=== PATIENT | male | born 1960 | race Caucasian/White ===

== ENCOUNTER 2019-06-30 00:10 | Day surgery (SDC) | payer OTHER, SELFPAY ==
[2019-06-28 13:39] VITALS: BMI 32.8
[2019-06-30] MEDS: LACTATED RINGERS 1,000 ML 150 ML IV CONT (12:16)
--- NOTE | 2019-06-30 15:10 | PM.HPGS ---
History of Present Illness History of Present Illness Consent: Risks, benefits, and alternatives have been discussed and questions answered. Patient agrees to proceed with procedure. Chief complaint: Neoplasm screening Narrative: Rosendo Cruz is a 58 year old male here for first colonoscopy Review of Systems Constitutional: Constitutional: Denies headache(s) and Denies weakness Eyes: Eyes: Denies blurry vision ENT: Reports Normal hearing present, Denies headache(s) and Denies neck pain Cardiovascular: Cardiovascular: Denies chest pain and Denies dyspnea Respiratory: Respiratory: Denies dyspnea Gastrointestinal: Gastrointestinal: Reports no additional gastrointestinal complaints Genitourinary: Genitourinary: Denies dysuria Musculoskeletal: Musculoskeletal: Denies neck pain Integumentary/Breasts: Skin/Breast: Denies dry skin Neurologic: Reports Normal hearing present, Denies headache(s) and Denies weakness Psychiatric: Psychiatric: Denies anxiety Endocrine: Endocrine: Denies change in body appearance Hematologic/Lymphatic: Hematologic/Lymphatic: Denies easy bleeding Allergic/Immunologic: Allergic/Immunologic: Denies urticaria PMFSH Past Medical History Medical History (Updated 06/30/19 @ 15:11 by Darius Miner MD) Colon cancer screening Meds Home Medications and Allergies Home Medications Medication Instructions Recorded Confirmed Type lisinopril-hydrochlorothiazide 1 tablet PO DAILY 06/28/19 06/30/19 History Allergies Allergy/AdvReac Type Severity Reaction Status Date / Time Penicillins Allergy Mild Rash Verified 06/30/19 11:34 Exam Const: General: comfortable and no acute distress HENMT: General nose exam: Normal nares present Eyes: General: appearance normal, both eyes and all related structures Neck: Neck: no JVD Resp: Auscultation: clear to auscultation bilaterally Cardio: Rate: regular rate Rhythm: regular rhythm GI: Inspection: non-distended GI Palp: Yes Soft to palpation Skin: General skin exam: normal color Neuro: General: gait normal Speech: normal speech Extrem: General: normal to inspection Psych: Mental Status: mental status grossly normal Assessment and Plan Assessment and plan (1) Colon cancer screening: Code(s): Z12.11 - Encounter for screening for malignant neoplasm of colon Status: Acute Assessment and Plan: will proceed with colonoscopy
[2019-06-30 15:15] VITALS: BP 116/80; PULSE 76; RESP 15; O2SAT 98
[2019-06-30 15:25] VITALS: BP 115/81; PULSE 71; RESP 12; O2SAT 99
--- NOTE | 2019-06-30 15:25 | P.PNAN_ITS ---
Anes - Initial Pre Proc Eval Procedure: Operation Date: 06/30/19 13:00 Proposed Procedures p Screening Colonoscopy - Darius Miner MD Date/Time: 06/30/19 15:25 Surgeon: Darius Miner MD Pre Op Diagnosis: Neoplasm screening Patient Data Age: 58 Gender: M Height: 5 ft 11 in Weight: 106.3 kg Allergies Allergy/AdvReac Type Severity Reaction Status Date / Time Penicillins Allergy Mild Rash Verified 06/30/19 11:34 Home Medications Medication Instructions Recorded Confirmed Type lisinopril-hydrochlorothiazide 1 tablet PO DAILY 06/28/19 06/30/19 History Patient hx anesthesia problems: none Family hx anesthesia problems: none [facility] Past Medical History Medical History (Updated 06/30/19 @ 15:25 by Tomy James MD) Colon cancer screening Obesity CIERRA (obstructive sleep apnea) PVD (peripheral vascular disease) Surgical History Surgical History (Updated 06/30/19 @ 15:26 by Tomy James MD) S/P insertion of iliac artery stent Anes - Eval Final PreProcedure Day of Procedure 06/30/19 15:25 Patient weight: obese Heart: regular rate and rhythm Lungs: clear to auscultation Airway: Mallampati scale class II Neurological: alert and oriented Last oral intake: >/= 8 hours ASA classification: III Emergent: no Anesthetic plan: proceed Informed Consent: The patient's anesthetic plan and its attendant risks and benefits were discussed with the patient/family/POA. Questions were solicited and answers provided to the satisfaction of the patient/family/POA.
== END 2019-06-30 16:00 | disposition home or self-care (01) ==
PROVIDERS: PCP Family Medicine Sports Medicine; Visit Provider Internal Medicine Gastroenterology
PROC: 0DJD8ZZ Inspection of Lower Intestinal Tract, Via Natural or Artificial Opening Endoscopic (ICD-10-PCS; CPT 45378; principal; 2019-06-30 13:00)
DX: Z12.11 Encounter for screening for malignant neoplasm of colon (principal); D12.3 Benign neoplasm of transverse colon; K63.5 Polyp of colon; K57.30 Diverticulosis of large intestine without perforation or abscess without bleeding
CPT/HCPCS: 45380; 45385; 88305; J2704; J7120

== ENCOUNTER 2021-08-12 09:55 | Emergency (ER) | payer BC, SELFPAY ==
--- NOTE | ~2021-08-12 | XR_ITS ---
EXAMINATION: XR chest 1V portable INDICATION: Tachycardia and shortness of breath TECHNIQUE: Portable AP chest at 1032 hours COMPARISON: None available FINDINGS: There are patchy opacities of the mid and lower lung zones. No pleural effusion or pneumoth orax is identified. The cardiomediastinal silhouette is normal. IMPRESSION: 1. Patchy opacities of the mid and lower lung zones, consistent with atelectasis versus pneumonia. Reviewed, dictated and finalized at location A. IMPRESSION: 1. Patchy opacities of the mid and lower lung zones, consistent with atelectasi s versus pneumonia.
[2021-08-12 09:57] VITALS: BP 188/98; PULSE 115; RESP 17; TEMP 36.6; O2SAT 98
--- NOTE | 2021-08-12 10:04 | ECG_ITS ---
Measurements Intervals [place] Rate: 106 P: 61 [place]: 193 QRS: 77 QRSD: 97 T: 45 QT: 317 QTc: 422 Interpretive Statements SINUS TACHYCARDIA WITH OCCASIONAL PREMATURE VENTRICULAR CONTRACTION NONSPECIFIC T-WAVE ABNORMALITY BORDERLINE ECG NO PREVIOUS ECG AVAILABLE FOR COMPARISON Electronically Signed On 08-12-2021 14:35:21 CDT by Jean-Pierre Xiong M.D.
--- NOTE | 2021-08-12 10:05 | ED.ARRPALP ---
HPI - Arrhythmia/Palpitations General Chief Complaint: Arrhythmia/Palpitations Stated Complaint: palp Time Seen by Provider: 08/12/21 09:56 Source: RN notes reviewed History of Present Illness HPI narrative: Patient presents emergency department from home for palpitations. Patient states symptoms began yesterday. He states at times will feel his heart is racing and then will feel like he is skipping a beat at times. He states that with this he began to feel short of breath this morning. He denies any previous cardiac history or any history of arrhythmias. He denies any fevers or chills, chest pain shortness of breath abdominal pain nausea vomiting or any other symptoms. Denies any new medications or any increased Phonation Related Data Home Medications Medication Instructions Recorded Confirmed lisinopril 10 1 tablet PO DAILY 06/28/19 06/30/19 mg-hydrochlorothiazide 12.5 mg tablet Allergies Allergy/AdvReac Type Severity Reaction Status Date / Time Penicillins Allergy Mild Rash Verified 08/12/21 10:02 Review of Systems Review of Systems: Gen.: Denies fevers or chills ENT: Denies congestion Respiratory: Ports shortness of breath CV: See HPI GI: Denies abdominal pain nausea, emesis or diarrhea Musculoskeletal: Denies back pain or muscle pain Neuro: Denies numbness, tingling, weakness or focal weakness Skin: Denies rash Except as documented, all other systems reviewed and negative [facility] Past Medical History Medical History Colon cancer screening Obesity CIERRA (obstructive sleep apnea) PVD (peripheral vascular disease) Surgical History Surgical History (Updated 06/30/19 @ 15:26 by Tomy James MD) S/P insertion of iliac artery stent Social History Social History (Updated 08/12/21 @ 10:08 by Bashir Tello DO) Smoking status: Never smoker Exam Narrative: APPEARANCE: No acute distress, nontoxic, resting in bed EYES: EOMI HEENT: Normocephalic, atraumatic, OMM RESPIRATORY: No respiratory distress Clear to auscultation bilaterally with no rhonchi wheezing or rales. CARDIOVASCULAR: Regular rate and rhythm without murmurs rubs or gallops. ABDOMINAL: Soft, nontender, nondistended, no rebound or guarding MUSCULOSKELETAl: Moves all extremities. No clubbing, cyanosis or edema. NEURO: Awake and alert. Following commands, speech normal, no focal deficits SKIN:: Warm, dry. No rashes lesions or abrasions PSYCHIATRIC: Normal affect/mood, Course Course Emergency Course: Patient is remained on pvc monitor throughout stay in ED no arrhythmias noted other than occasional PVC Discussed with patient chest x-ray patient has no fevers or chills no white count denies having any cough feel this favors atelectasis Discussed with patient results of workup and diagnosis. Discussed need for follow-up with primary care, proper use of medication, and reasons to return to the emergency department. Patient understands and agrees to current treatment plan Vital Signs Vital signs: Vital Signs Temperature 97.8 F 08/12/21 09:57 Pulse Rate 115 H 08/12/21 09:57 Respiratory Rate 17 08/12/21 09:57 Blood Pressure 188/98 H 08/12/21 09:57 Pulse Oximetry 98 08/12/21 09:57 Oxygen Delivery Room Air 08/12/21 09:57 Temperature 97.8 F 08/12/21 09:57 Pulse Rate 88 08/12/21 13:43 Respiratory Rate 19 08/12/21 13:43 Blood Pressure 104/73 08/12/21 13:43 Pulse Oximetry 97 08/12/21 13:43 Oxygen Delivery Room Air 08/12/21 09:57 MDM - Arrhythmia/Palpitations Lab Data Result diagrams: 08/12/21 10:07 08/12/21 10:07 Labs: Lab Results 08/12/21 08/12/21 08/12/21 Range/Units 10:07 10:07 10:07 WBC 5.8 (4.5-10.0) K/mm3 RBC 5.50 (4.6-6.20) M/mm3 Hgb 16.3 (14.0-18.0) g/dL Hct 47.3 (42.0-52.0) % MCV 86.0 (80-100) fl MCH 29.6 (26-34) pg MCHC 34.5 (32-36) g/dl RDW
[2021-08-12] MEDS: SODIUM CHLORIDE 0.9% IV 1,000 ML 999 ML IV CONT (10:16)
[2021-08-12 10:35] VITALS: BP 145/86; PULSE 90; RESP 17; O2SAT 99
[2021-08-12 10:37] LABS: Basophils Absolute Auto 0.1 K/mm3 (0.0-0.1); Basophils Percent Auto 1.4 % (0.2-1.2); Eosinophils Absolute Auto 0.1 K/mm3 (0-0.3); Eosinophils Percent Auto 1.5 % (0-4.4); Hematocrit 47.3 % (42.0-52.0); Hemoglobin 16.3 g/dL (14.0-18.0); Immature Granulocyte Absolute 0.02 K/mm3 (0.00-0.031); Immature Granulocyte Percent A 0.3 % (0-0.5); Lymphocytes Absolute Auto 1.93 K/mm3 (0.9-3.2); Lymphocytes Percent Auto 33.2 % (18.3-44.2); Mean Corpuscular HGB Conc 34.5 g/dl (32-36); Mean Corpuscular Hemoglobin 29.6 pg (26-34); Mean Platelet Volume 9.4 fl (7.4-10.4); Monocytes Absolute Auto 0.4 K/mm3 (0.1-0.6); Monocytes Percent Auto 7.4 % (2.6-8.5); Neutrophils Absolute Auto 3.3 K/mm3 (1.3-6.7); Neutrophils Percent Auto 56.2 % (45.5-73.1); Platelet Count Result 243 k/mm3 (150-375); Red Cell Distribution Width 13.1 % (11.5-14.5); White Blood Count 5.8 K/mm3 (4.5-10.0)
[2021-08-12 10:52] LABS: Alanine Aminotransferase 34 U/L (6-50); Albumin Level 4.8 g/dL (3.5-5.1); Alkaline Phosphatase 74 U/L (38-126); Anion Gap 7 mmol/L (8-16); Aspartate Amino Transferase 27 U/L (17-59); Bilirubin,Total 0.7 mg/dL (0.2-1.3); Blood Urea Nitrogen 17 mg/dL (9-20); Calcium 9.2 mg/dL (8.4-10.2); Carbon Dioxide 28 mmol/L (22-30); Chloride 99 mmol/L (98-107); Estimated CRCL calculation 99 ml/min; Estimated Glomerular Filt Rate > 60; Glucose 156 mg/dL (65-110); Lipase 82 U/L (23-300); Potassium 3.5 mmol/L (3.4-5.0); Sodium 134 mmol/L (137-145)
[2021-08-12 10:54] LABS: Prothrombin Time 12.9 Seconds (11.1-14.7)
[2021-08-12 10:55] LABS: Partial Thromboplastin Time 28.3 SECONDS (22.3-36.8)
[2021-08-12 10:57] LABS: D Dimer 0.43 ug/mL (<0.48)
[2021-08-12 11:04] LABS: Troponin I < 0.012 ng/mL (0.000-0.034)
[2021-08-12 11:31] VITALS: BP 129/82; PULSE 85; RESP 26; O2SAT 96
[2021-08-12 11:45] LABS: SARS-CoV-2 RNA PCR Negative
[2021-08-12 12:38] VITALS: BP 135/85; PULSE 80; RESP 18; O2SAT 97
[2021-08-12 13:32] LABS: Troponin I < 0.012 ng/mL (0.000-0.034)
[2021-08-12 13:43] VITALS: BP 104/73; PULSE 88; RESP 19; O2SAT 97
[2021-08-12 14:09] VITALS: BP 104/73; PULSE 73; RESP 15; O2SAT 98
== END 2021-08-12 14:14 | disposition home or self-care (01) ==
PROVIDERS: Emergency Provider Emergency Medicine; PCP Family Medicine Sports Medicine
DX: R00.2 Palpitations (principal); I49.3 Ventricular premature depolarization; Z20.822 Contact with and (suspected) exposure to COVID-19; I73.9 Peripheral vascular disease, unspecified; E66.9 Obesity, unspecified; Z68.34 Body mass index [BMI] 34.0-34.9, adult; G47.33 Obstructive sleep apnea (adult) (pediatric); R91.8 Other nonspecific abnormal finding of lung field
CPT/HCPCS: 36415; 71045; 80053; 83690; 83735; 84443; 84484; 85025; 85380; 85610; 85730; 93005; 96360; 99284; C9803; J7030; U0003; U0005

== ENCOUNTER 2024-05-08 18:22 | Emergency (ER) | payer BC, SELFPAY ==
[2024-05-08] VITALS (19 sets, daily range): BP systolic 148–168; BP diastolic 85–99; PULSE 82–105; RESP 15–30; TEMP 36.8; O2SAT 96–100
--- NOTE | ~2024-05-08 | XR_ITS ---
EXAMINATION: XR chest 2V Exam Date/Time: 05/08/2024 21:08 CDT HISTORY: CHEST PAIN, LEFT SIDED, OCCURS WHEN BREATHING IN Comparison: 08/12/2021. RESULT: Lines, tubes, and devices: None. Lungs and pleura: Streaky bibasilar scar/atelectasis. Left hemidiaphragm elevation. Minimal left pos terior costophrenic angle blunting. Cardiomediastinal silhouette: Stable. Other: No acute osseous or upper abdominal finding. IMPRESSION: Small left pleural effusion versus chronic pleural blunting. Reviewed, dictated and finalized at location K.
--- NOTE | ~2024-05-08 | CT_ITS ---
Clinical Indication: Chest pain, elevated d-dimer CT Scan of the Chest with Contrast: Technique: Contiguous sections were acquired throughout the chest after intravenous administration of 100 cc of Omnipaque 350. Dose reduction technique was used on this scan by utilizing automated expos ure control and iterative reconstruction technique. The dose-length product (DLP) was 721.00 mGy-cm. Findings: There is no evidence of any significant mediastinal, hilar or axillary lymphadenopathy. There is exte nsive pulmonary embolus, with subtle embolus involving the main pulmonary perfusion extending to the bilateral main pulmonary arteries with extension into segmental branches bilaterally. There is mild f lattening of the interventricular septum. There is no evidence of aortic dissection or aneurysm. There is no evidence of pleural or pericardial effusion. There is focal groundglass consolidation in the peripheral left upper lobe (axial image 59). There is additional area of groundglass consolidation at the lingula. 4 mm right lower lobe pulmonary nodule present (axial image 73).. Images through the upper abdomen reveal no abnormalities. Impression: Extensive pulmonary embolus, including saddle embolus, as detailed above. Mild flattening of the inte rventricular septum could reflect mild right heart strain. Areas of groundglass consolidation in the left upper lobe/lingula, suspicious for developing pulmonar y infarcts. 4 mm right lower lobe pulmonary nodule, likely benign. For a high-risk patient, consider one-year fol low-up exam. Reviewed, dictated and finalized at [facility]. Impression: Extensive pulmonary embolus, including saddle embolus, as detailed above. Mild flattening of the interventricular septum could reflect mild right heart strain . Areas of groundglass consolidation in the left upper lobe/lingula, suspicious f or developing pulmonary infarcts. 4 mm right lower lobe pulmonary nodule, likely benign. For a high-risk patient, consider one-year follow-up exam.
--- NOTE | ~2024-05-08 | CT_ITS ---
CT abdomen pelvis w con Ordering provider: Hazel Aiken MD History: 63 years Male with . generalized abdominal distension pain, RLQ prima . Comparison: None. Technique: CT abdomen and pelvis with IV and without oral contrast. Automated exposure control and it erative reconstruction technique were employed. The dose-length product was 1149.99 mGy-cm. 100 mL Om nipaque 350 was given IV. Findings: VISUALIZED LOWER CHEST: Atelectasis versus focal pneumonia in the lingula. Minimal atelectasis in the left lower lobe with trace of effusion. UPPER ABDOMINAL ORGANS: Liver: Normal. Gallbladder: Normal. Spleen: Normal. Stomach/duodenum: Normal. Pancreas: Normal. Adrenals: Normal. Kidneys: Tiny cysts in the left and right kidney upper pole. PELVIC ORGANS: The bladder is underfilled with thickened wall. Slightly enlarged prostate BOWEL AND MESENTERY: Colon: No evidence of diverticulitis. Slightly dilated transverse colon measuring 6.1 cm. Normal appe ndix. Small Bowel: Normal. No obstruction. Peritoneum/mesentery: No free air or free fluid. No mesenteric lymphadenopathy. RETROPERITONEUM: Mild atheromatous disease of the abdominal aorta. Stents are seen in the iliac vein s. No retroperitoneal lymphadenopathy. MUSCULOSKELETAL: Superficial soft tissues: Inguinal lymph nodes are noted with the largest on the left side measures 1 .8 cm. The superficial soft tissues are normal. Bones: Age appropriate degenerative changes of the spine. IMPRESSION: 1. No evidence of appendicitis, diverticulitis or intestinal obstruction. 2. Slightly dilated transverse colon measuring 6 cm. Follow-up advised. 3. Stents are seen in the iliac veins. Reviewed, dictated and finalized at location A.
--- NOTE | 2024-05-08 18:32 | ECG_ITS ---
Test Date: 2024-05-08 18:37:11 Measurements Intervals [place] Rate: 104 P: 44 [place]: 167 QRS: 52 QRSD: 94 T: 37 QT: 302 QTc: 399 Interpretive Statements SINUS TACHYCARDIA ABNORMAL RHYTHM ECG No previous ECG available for comparison Electronically Signed On 05-09-2024 15:12:45 CDT by Jeremias Morgan M.D.
--- NOTE | 2024-05-08 20:42 | ED_ITS ---
HPI - SOB/Dyspnea General Chief Complaint: Shortness of Breath/Dyspnea <Imani Dsouza PA-C - Last Filed: 05/10/24 17:33> Stated Complaint: pain with inspiration under left breast <CINTHIA Chauhan Last Filed: 05/10/24 17:33> Time Seen by Provider: 05/08/24 20:27 <Imani Dsouza PA-C - Last Filed: 05/10/24 17:33> Source: patient <Imani Dsouza PA-C - Last Filed: 05/10/24 17:33> Mode of arrival: ambulatory <CINTHIA Chauhan Last Filed: 05/10/24 17:33> Limitations: no limitations <Imani Dsouza PA-C - Last Filed: 05/10/24 17:33> History of Present Illness HPI Narrative: This is a 63 year old male that presents to the ER for pain in his left rib cage. Worse with deep breathing. Ongoing today. Has somewhat subsided since onset. Was seen at urgent care and sent to the ER for further evaluation. <Imani Dsouza PA-C - Last Filed: 05/10/24 17:33> Related Data Home Medications: Home Medications ?Medication ?Instructions ?Recorded ?Confirmed ?Last Taken ?Type lisinopril 10 1 tablet PO DAILY 06/28/19 06/30/19 06/29/19 History mg-hydrochlorothiazide 12.5 mg tablet <CINTHIA Chauhan Last Filed: 05/10/24 17:33> Allergies/Adverse Reactions: Allergies Allergy/AdvReac Type Severity Reaction Status Date / Time Penicillins Allergy Mild Rash Verified 05/08/24 20:42 <CINTHIA Chauhan Last Filed: 05/10/24 17:33> Review of Systems 2 Review of Systems: All systems reviewed & are unremarkable except as noted in HPI and below <Imani Dsouza PA-C - Last Filed: 05/10/24 17:33> PMFSH Past Medical History Medical History: Medical History Colon cancer screening Obesity CIERRA (obstructive sleep apnea) PVD (peripheral vascular disease) <Imani Dsouza PA-C - Last Filed: 05/10/24 17:33> Surgical History Surgical History: Surgical History (Updated 06/30/19 @ 15:26 by Tomy James MD) S/P insertion of iliac artery stent <CINTHIA Chauhan Last Filed: 05/10/24 17:33> Social History Social History: Social History (Updated 08/12/21 @ 10:08 by Bashir Tello, DO) Smoking status: Never smoker <CINTHIA Chauhan Last Filed: 05/10/24 17:33> Exam 2 Narrative: GENERAL: Well-appearing, well-nourished, and in no acute distress. HEAD: Normocephalic, atraumatic. EYES: EOMI. ENT: Nares clear, no rhinorrhea or epistaxis. Mucous membranes moist. Oropharynx without tonsillar hypertrophy exudate or other lesions. Bilateral TMs pearly espinoza non-bulging NECK: Supple. No adenopathy or masses. CHEST: Clear to auscultation. No respiratory distress. No wheezes rales or rhonchi HEART: Regular rate and rhythm. No murmur heard. Normal peripheral pulses. EXTREMITIES: Normal range of motion. No edema. SKIN: Warm, dry, no rash. NEURO: No focal deficits. Alert and oriented x3. PSYCH: Normal mood and affect <Imani Dsouza PA-C - Last Filed: 05/10/24 17:33> Course Course Emergency Course: patient updated on his workup and recommendation for transfer for higher level of care <Imani Dsouza PA-C - Last Filed: 05/10/24 17:33> patient updated on his workup and recommendation for transfer for higher level of care 1450 on 05/09/24: Discussed with Dr. Sheth with hospitalist service at [facility]. Discussed that patient has had no decline in his status with stable blood pressure, normal heart rate, no oxygen requirement. He reports that patient likely does not require transfer and would not be a candidate for any interventional procedure in that patient can likely be discharged on Xarelto and Eliquis. Discussed getting an echocardiogram to evaluate for heart strain given patient had no elevated troponin. He would like to be updated on echo results especially if there is persistent heart strain. 1907 on 05/09/24: Discussed care plan with the patient. Care transferred to Dr. Purcell. NPO at midnight. Hopeful for echo in the morning. If no heart strain likely can d/c home with xarelto. Would recommend contacting Dr. Cruz. 05/10/24: Patient signed out to me this morning. Patient complaining of abdominal pain and bloating and gas throughout the day. He was slightly distended on exam although no rigidity or guarding. Initial plan was to attempt oral medications and reassess. However, patient became flushed with a red face and diaphoresis on his head. He states the pain is generalized although more so in LLQ. Patient underwent CT abdomen pelvis. This showed some dilatation in the transverse abdomen but otherwise unremarkable. Patient noted the pain was improving to a degree that he was ready to trial eating as he was hungry. He new to proceed cautiously and so only took a few bites of jocelin steak, cookie, etc but did tolerate this without emesis. Echo performed as below. Based on being in the ED >48 hours, I did attempt to contact marketing content coordinator hospitalist Heather MORRIS who declined admission at approximately 1900 as she did not feel comfortable with the admission given the initial evidence of right heart strain. Shortly thereafter, learned that there was a bed available at [facility]. Transportation arranged. Just prior to EMS arrival, patient became nauseated and received 4 mg ondansetron. <Hazel Aiken MD - Last Filed: 05/10/24 20:00> patient updated on his workup and recommendation for transfer for higher level of care 1449 on 05/09/24: Discussed with Dr. Sheth with hospitalist service at [facility]. Discussed that patient has had no decline in his status with stable blood pressure, normal heart rate, no oxygen requirement. He reports that patient likely does not require transfer and would not be a candidate for any interventional procedure in that patient can likely be discharged on Xarelto and Eliquis. Discussed getting an echocardiogram to evaluate for heart strain given patient had no elevated troponin. He would like to be updated on echo results especially if there is persistent heart strain. 1907 on 05/09/24: Discussed care plan with the patient. Care transferred to Dr. Purcell. NPO at midnight. Hopeful for echo in the morning. If no heart strain likely can d/c home with xakwesito. Would recommend contacting Dr. Crzu. <Gerson Montague MD - Last Filed: 05/09/24 19:09> WOMEN'S STUDIES PROFESSOR/PA Physician Supervision PA notified me that this patient had a saddle PE not currently requiring oxygen but with evidence of right heart strain and possible pulmonary infarct. I am where they have been accepted to [facility] but are pending a bed. I was available for further consultation or history intervention will patient remained in the emergency department however did not personally evaluate this patient was otherwise not directly involved in their care during my shift < Hazel Aiken MD - Last Filed: 05/10/24 20:00> Consultations Consultation #1: Spoke with Dr. Zepeda, hospitalist, about patient and workup. Patient is accepted to [facility] <Imani Dsouza PA-C - Last Filed: 05/10/24 17:33> Date: 05/09/24 <Imani Dsouza PA-C - Last Filed: 05/10/24 17:33> Vital Signs Vital signs: Vital Signs Temperature 98.3 F 05/08/24 18:32 Pulse Rate 102 H 05/08/24 18:32 Respiratory Rate 18 05/08/24 18:32 Blood Pressure 168/88 H 05/08/24 18:32 Pulse Oximetry 99 05/08/24 18:32 Oxygen Delivery Room Air 05/08/24 18:32 Temperature 97.9 F 05/10/24 16:00 Pulse Rate 86 05/10/24 16:00 Respiratory Rate 18 05/10/24 16:00 Blood Pressure 149/88 H 05/10/24 16:00 Pulse Oximetry 95 05/10/24 16:00 Oxygen Delivery Room Air 05/10/24 14:01 <Imani Dsouza PA-C - Last Filed: 05/10/24 17:33> Vital Signs Temperature 98.3 F 05/08/24 18:32 Pulse Rate 102 H 05/08/24 18:32 Respiratory Rate 18 05/08/24 18:32 Blood Pressure 168/88 H 05/08/24 18:32 Pulse Oximetry 99 05/08/24 18:32 Oxygen Delivery Room Air 05/08/24 18:32 Temperature 97.9 F 05/10/24 16:00 Pulse Rate 86 05/10/24 16:00 Respiratory Rate 18 05/10/24 16:00 Blood Pressure 149/88 H 05/10/24 16:00 Pulse Oximetry 95 05/10/24 16:00 Oxygen Delivery Room Air 05/10/24 14:01 <Hazel Aiken MD - Last Filed: 05/10/24 20:00> Vital Signs Temperature 98.3 F 05/08/24 18:32 Pulse Rate 102 H 05/08/24 18:32 Respiratory Rate 18 05/08/24 18:32 Blood Pressure 168/88 H 05/08/24 18:32 Pulse Oximetry 99 05/08/24 18:32 Oxygen Delivery Room Air 05/08/24 18:32 Temperature 97.9 F 05/10/24 16:00 Pulse Rate 86 05/10/24 16:00 Respiratory Rate 18 05/10/24 16:00 Blood Pressure 149/88 H 05/10/24 16:00 Pulse Oximetry 95 05/10/24 16:00 Oxygen Delivery Room Air 05/10/24 14:01 <Gerson Montague MD - Last Filed: 05/09/24 19:09> MDM - SOB/Dyspnea MDM Narrative Medical decision making narrative: Patient presents the emergency department for left-sided pleuritic chest pain. Mildly tachycardic over this normalized without intervention. Oxygen saturation has remained normal on room air. CBC and metabolic panel without concerning findings. EKG without concerning changes and baseline troponin is negative. D-dimer elevated, CTA of the chest obtained. Shows extensive bilateral pulmonary emboli, including saddle embolus. Right heart strain. Possible pulmonary infarct. patient updated on his workup and recommendation for transfer for higher level of care. Spoke with Dr. Zepeda, hospitalist, about patient and workup. Patient is accepted to [facility] <Imani Dsouza PA-C - Last Filed: 05/10/24 17:33> Differential Diagnosis Differential diagnosis: Likely congestive heart failure, community acquired pneumonia and pulmonary embolism <Imani Dsouza PA-C - Last Filed: 05/10/24 17:33> Lab Data Attestation: I reviewed the patient's lab results. <Imani Dsouza PA-C - Last Filed: 05/10/24 17:33> Result diagrams: 05/09/24 06:11 05/08/24 20:37 <Imani Dsouza PA-C - Last Filed: 05/10/24 17:33> Labs: Lab Results 05/08/24 05/09/24 05/09/24 Range/Units 20:37 02:23 06:11 WBC 9.3 7.8 (4.5-10.0) K/mm3 RBC 5.07 4.80 (4.6-6.20) M/mm3 Hgb 15.1 14.3 (14.0-18.0) g/dL Hct 44.1 42.1 (42.0-52.0) % MCV 87.0 87.7 (80-100) fl MCH 29.8 29.8 (26-34) pg MCHC 34.2 34.0 (32-36) g/dl RDW 13.0 13.1 (11.5-14.5) % Plt Count 223 212 (150-375) k/mm3 MPV 8.9 8.7 (7.4-10.4) fl Immature Gran % (Auto) 0.5 0.4 (0-0.5) % Neut % (Auto) 70.4 60.5 (45.5-73.1) % Lymph % (Auto) 20.4 28.4 (18.3-44.2) % [place] % (Auto) 6.3 8.2 (2.6-8.5) % Eos % (Auto) 1.6 1.7 (0-4.4) % Baso % (Auto) 0.8 0.8 (0.2-1.2) % Lymph # (Auto) 1.89 2.21 (0.9-3.2) K/mm3 [place] # (Auto) 0.6 0.6 (0.1-0.6) K/mm3 Eos # (Auto) 0.2 0.1 (0-0.3) K/mm3 Baso # (Auto) 0.1 0.1 (0.0-0.1) K/mm3 Abs Immat Gran (auto) 0.05 H 0.03 (0.00-0.031) K/mm3 Absolute Neuts (auto) 6.5 4.7 (1.3-6.7) K/mm3 Absolute Nucleated RBC 0.000 0.000 (0.0-0.012) K/mm3 Nucleated RBC % 0.0 0.0 (0.0-0.2) % PT 14.3 14.7 (11.1-14.7) Seconds INR 1.1 1.1 APTT 27.5 49.0 H (22.3-36.8) Seconds D-Dimer 2.76 H (<0.48) ug/mL Sodium 136 L (137-145) mmol/L Potassium 3.9 (3.4-5.0) mmol/L Chloride 100 (98-107) mmol/L Carbon Dioxide 29 (22-30) mmol/L Anion Gap 7 (4-12) mmol/L BUN 14 (9-20) mg/dL Creatinine 1.00 (0.7-1.3) mg/dL Estim Creat Clear Calc 88 ml/min Estimated GFR > 60 (59 - ) Glucose 115 H (65-110) mg/dL Calcium 9.5 (8.4-10.2) mg/dL Total Bilirubin 0.7 (0.2-1.3) mg/dL AST 29 (17-59) U/L ALT 38 (6-50) U/L Alkaline Phosphatase 91 (38-126) U/L Troponin I < 0.012 < 0.012 (0.000-0.034) ng/mL Total Protein 8.0 (6.3-8.2) g/dL Albumin 4.5 (3.5-5.1) g/dL Lipase 74 (23-300) U/L Influenza A (RT-PCR) Negative (Negative) Influenza B (RT-PCR) Negative (Negative) RSV (RT-PCR) Negative (Negative) SARS-CoV-2 RNA (RT-PCR) Negative (Negative) 05/09/24 05/09/24 05/09/24 Range/Units 11:34 16:23 21:47 WBC (4.5-10.0) K/mm3 RBC (4.6-6.20) M/mm3 Hgb (14.0-18.0) g/dL Hct (42.0-52.0) % MCV (80-100) fl MCH (26-34) pg MCHC (32-36) g/dl RDW (11.5-14.5) % Plt Count (150-375) k/mm3 MPV (7.4-10.4) fl Immature Gran % (Auto) (0-0.5) % Neut % (Auto) (45.5-73.1) % Lymph % (Auto) (18.3-44.2) % [place] % (Auto) (2.6-8.5) % Eos % (Auto) (0-4.4) % Baso % (Auto) (0.2-1.2) % Lymph # (Auto) (0.9-3.2) K/mm3 [place] # (Auto) (0.1-0.6) K/mm3 Eos # (Auto) (0-0.3) K/mm3 Baso # (Auto) (0.0-0.1) K/mm3 Abs Immat Gran (auto) (0.00-0.031) K/mm3 Absolute Neuts (auto) (1.3-6.7) K/mm3 Absolute Nucleated RBC (0.0-0.012) K/mm3 Nucleated RBC % (0.0-0.2) % PT (11.1-14.7) Seconds INR APTT 84.1 H 50.7 H 104.4 H (22.3-36.8) Seconds D-Dimer (<0.48) ug/mL Sodium (137-145) mmol/L Potassium (3.4-5.0) mmol/L Chloride (98-107) mmol/L Carbon Dioxide (22-30) mmol/L Anion Gap (4-12) mmol/L BUN (9-20) mg/dL Creatinine (0.7-1.3) mg/dL Estim Creat Clear Calc ml/min Estimated GFR (59 - ) Glucose (65-110) mg/dL Calcium (8.4-10.2) mg/dL Total Bilirubin (0.2-1.3) mg/dL AST (17-59) U/L ALT (6-50) U/L Alkaline Phosphatase (38-126) U/L Troponin I (0.000-0.034) ng/mL Total Protein (6.3-8.2) g/dL Albumin (3.5-5.1) g/dL Lipase (23-300) U/L Influenza A (RT-PCR) (Negative) Influenza B (RT-PCR) (Negative) RSV (RT-PCR) (Negative) SARS-CoV-2 RNA (RT-PCR) (Negative) 05/10/24 05/10/24 Range/Units 03:37 09:51 WBC (4.5-10.0) K/mm3 RBC (4.6-6.20) M/mm3 Hgb (14.0-18.0) g/dL Hct (42.0-52.0) % MCV (80-100) fl MCH (26-34) pg MCHC (32-36) g/dl RDW (11.5-14.5) % Plt Count (150-375) k/mm3 MPV (7.4-10.4) fl Immature Gran % (Auto) (0-0.5) % Neut % (Auto) (45.5-73.1) % Lymph % (Auto) (18.3-44.2) % [place] % (Auto) (2.6-8.5) % Eos % (Auto) (0-4.4) % Baso % (Auto) (0.2-1.2) % Lymph # (Auto) (0.9-3.2) K/mm3 [place] # (Auto) (0.1-0.6) K/mm3 Eos # (Auto) (0-0.3) K/mm3 Baso # (Auto) (0.0-0.1) K/mm3 Abs Immat Gran (auto) (0.00-0.031) K/mm3 Absolute Neuts (auto) (1.3-6.7) K/mm3 Absolute Nucleated RBC (0.0-0.012) K/mm3 Nucleated RBC % (0.0-0.2) % PT 14.4 (11.1-14.7) Seconds INR 1.1 APTT 94.3 H 78.9 H (22.3-36.8) Seconds D-Dimer (<0.48) ug/mL Sodium (137-145) mmol/L Potassium (3.4-5.0) mmol/L Chloride (98-107) mmol/L Carbon Dioxide (22-30) mmol/L Anion Gap (4-12) mmol/L BUN (9-20) mg/dL Creatinine (0.7-1.3) mg/dL Estim Creat Clear Calc ml/min Estimated GFR (59 - ) Glucose (65-110) mg/dL Calcium (8.4-10.2) mg/dL Total Bilirubin (0.2-1.3) mg/dL AST (17-59) U/L ALT (6-50) U/L Alkaline Phosphatase (38-126) U/L Troponin I (0.000-0.034) ng/mL Total Protein (6.3-8.2) g/dL Albumin (3.5-5.1) g/dL Lipase (23-300) U/L Influenza A (RT-PCR) (Negative) Influenza B (RT-PCR) (Negative) RSV (RT-PCR) (Negative) SARS-CoV-2 RNA (RT-PCR) (Negative) <Imani Dsouza PA-C - Last Filed: 05/10/24 17:33> Lab Results 05/08/24 05/09/24 05/09/24 Range/Units 20:37 02:23 06:11 WBC 9.3 7.8 (4.5-10.0) K/mm3 RBC 5.07 4.80 (4.6-6.20) M/mm3 Hgb 15.1 14.3 (14.0-18.0) g/dL Hct 44.1 42.1 (42.0-52.0) % MCV 87.0 87.7 (80-100) fl MCH 29.8 29.8 (26-34) pg MCHC 34.2 34.0 (32-36) g/dl RDW 13.0 13.1 (11.5-14.5) % Plt Count 223 212 (150-375) k/mm3 MPV 8.9 8.7 (7.4-10.4) fl Immature Gran % (Auto) 0.5 0.4 (0-0.5) % Neut % (Auto) 70.4 60.5 (45.5-73.1) % Lymph % (Auto) 20.4 28.4 (18.3-44.2) % [place] % (Auto) 6.3 8.2 (2.6-8.5) % Eos % (Auto) 1.6 1.7 (0-4.4) % Baso % (Auto) 0.8 0.8 (0.2-1.2) % Lymph # (Auto) 1.89 2.21 (0.9-3.2) K/mm3 [place] # (Auto) 0.6 0.6 (0.1-0.6) K/mm3 Eos # (Auto) 0.2 0.1 (0-0.3) K/mm3 Baso # (Auto) 0.1 0.1 (0.0-0.1) K/mm3 Abs Immat Gran (auto) 0.05 H 0.03 (0.00-0.031) K/mm3 Absolute Neuts (auto) 6.5 4.7 (1.3-6.7) K/mm3 Absolute Nucleated RBC 0.000 0.000 (0.0-0.012) K/mm3 Nucleated RBC % 0.0 0.0 (0.0-0.2) % PT 14.3 14.7 (11.1-14.7) Seconds INR 1.1 1.1 APTT 27.5 49.0 H (22.3-36.8) Seconds D-Dimer 2.76 H (<0.48) ug/mL Sodium 136 L (137-145) mmol/L Potassium 3.9 (3.4-5.0) mmol/L Chloride 100 (98-107) mmol/L Carbon Dioxide 29 (22-30) mmol/L Anion Gap 7 (4-12) mmol/L BUN 14 (9-20) mg/dL Creatinine 1.00 (0.7-1.3) mg/dL Estim Creat Clear Calc 88 ml/min Estimated GFR > 60 (59 - ) Glucose 115 H (65-110) mg/dL Calcium 9.5 (8.4-10.2) mg/dL Total Bilirubin 0.7 (0.2-1.3) mg/dL AST 29 (17-59) U/L ALT 38 (6-50) U/L Alkaline Phosphatase 91 (38-126) U/L Troponin I < 0.012 < 0.012 (0.000-0.034) ng/mL Total Protein 8.0 (6.3-8.2) g/dL Albumin 4.5 (3.5-5.1) g/dL Lipase 74 (23-300) U/L Influenza A (RT-PCR) Negative (Negative) Influenza B (RT-PCR) Negative (Negative) RSV (RT-PCR) Negative (Negative) SARS-CoV-2 RNA (RT-PCR) Negative (Negative) 05/09/24 05/09/24 05/09/24 Range/Units 11:34 16:23 21:47 WBC (4.5-10.0) K/mm3 RBC (4.6-6.20) M/mm3 Hgb (14.0-18.0) g/dL Hct (42.0-52.0) % MCV (80-100) fl MCH (26-34) pg MCHC (32-36) g/dl RDW (11.5-14.5) % Plt Count (150-375) k/mm3 MPV (7.4-10.4) fl Immature Gran % (Auto) (0-0.5) % Neut % (Auto) (45.5-73.1) % Lymph % (Auto) (18.3-44.2) % [place] % (Auto) (2.6-8.5) % Eos % (Auto) (0-4.4) % Baso % (Auto) (0.2-1.2) % Lymph # (Auto) (0.9-3.2) K/mm3 [place] # (Auto) (0.1-0.6) K/mm3 Eos # (Auto) (0-0.3) K/mm3 Baso # (Auto) (0.0-0.1) K/mm3 Abs Immat Gran (auto) (0.00-0.031) K/mm3 Absolute Neuts (auto) (1.3-6.7) K/mm3 Absolute Nucleated RBC (0.0-0.012) K/mm3 Nucleated RBC % (0.0-0.2) % PT (11.1-14.7) Seconds INR APTT 84.1 H 50.7 H 104.4 H (22.3-36.8) Seconds D-Dimer (<0.48) ug/mL Sodium (137-145) mmol/L Potassium (3.4-5.0) mmol/L Chloride (98-107) mmol/L Carbon Dioxide (22-30) mmol/L Anion Gap (4-12) mmol/L BUN (9-20) mg/dL Creatinine (0.7-1.3) mg/dL Estim Creat Clear Calc ml/min Estimated GFR (59 - ) Glucose (65-110) mg/dL Calcium (8.4-10.2) mg/dL Total Bilirubin (0.2-1.3) mg/dL AST (17-59) U/L ALT (6-50) U/L Alkaline Phosphatase (38-126) U/L Troponin I (0.000-0.034) ng/mL Total Protein (6.3-8.2) g/dL Albumin (3.5-5.1) g/dL Lipase (23-300) U/L Influenza A (RT-PCR) (Negative) Influenza B (RT-PCR) (Negative) RSV (RT-PCR) (Negative) SARS-CoV-2 RNA (RT-PCR) (Negative) 05/10/24 05/10/24 Range/Units 03:37 09:51 WBC (4.5-10.0) K/mm3 RBC (4.6-6.20) M/mm3 Hgb (14.0-18.0) g/dL Hct (42.0-52.0) % MCV (80-100) fl MCH (26-34) pg MCHC (32-36) g/dl RDW (11.5-14.5) % Plt Count (150-375) k/mm3 MPV (7.4-10.4) fl Immature Gran % (Auto) (0-0.5) % Neut % (Auto) (45.5-73.1) % Lymph % (Auto) (18.3-44.2) % [place] % (Auto) (2.6-8.5) % Eos % (Auto) (0-4.4) % Baso % (Auto) (0.2-1.2) % Lymph # (Auto) (0.9-3.2) K/mm3 [place] # (Auto) (0.1-0.6) K/mm3 Eos # (Auto) (0-0.3) K/mm3 Baso # (Auto) (0.0-0.1) K/mm3 Abs Immat Gran (auto) (0.00-0.031) K/mm3 Absolute Neuts (auto) (1.3-6.7) K/mm3 Absolute Nucleated RBC (0.0-0.012) K/mm3 Nucleated RBC % (0.0-0.2) % PT 14.4 (11.1-14.7) Seconds INR 1.1 APTT 94.3 H 78.9 H (22.3-36.8) Seconds D-Dimer (<0.48) ug/mL Sodium (137-145) mmol/L Potassium (3.4-5.0) mmol/L Chloride (98-107) mmol/L Carbon Dioxide (22-30) mmol/L Anion Gap (4-12) mmol/L BUN (9-20) mg/dL Creatinine (0.7-1.3) mg/dL Estim Creat Clear Calc ml/min Estimated GFR (59 - ) Glucose (65-110) mg/dL Calcium (8.4-10.2) mg/dL Total Bilirubin (0.2-1.3) mg/dL AST (17-59) U/L ALT (6-50) U/L Alkaline Phosphatase (38-126) U/L Troponin I (0.000-0.034) ng/mL Total Protein (6.3-8.2) g/dL Albumin (3.5-5.1) g/dL Lipase (23-300) U/L Influenza A (RT-PCR) (Negative) Influenza B (RT-PCR) (Negative) RSV (RT-PCR) (Negative) SARS-CoV-2 RNA (RT-PCR) (Negative) <Hazel Aiken MD - Last Filed: 05/10/24 20:00> Lab Results 05/08/24 05/09/24 05/09/24 Range/Units 20:37 02:23 06:11 WBC 9.3 7.8 (4.5-10.0) K/mm3 RBC 5.07 4.80 (4.6-6.20) M/mm3 Hgb 15.1 14.3 (14.0-18.0) g/dL Hct 44.1 42.1 (42.0-52.0) % MCV 87.0 87.7 (80-100) fl MCH 29.8 29.8 (26-34) pg MCHC 34.2 34.0 (32-36) g/dl RDW 13.0 13.1 (11.5-14.5) % Plt Count 223 212 (150-375) k/mm3 MPV 8.9 8.7 (7.4-10.4) fl Immature Gran % (Auto) 0.5 0.4 (0-0.5) % Neut % (Auto) 70.4 60.5 (45.5-73.1) % Lymph % (Auto) 20.4 28.4 (18.3-44.2) % [place] % (Auto) 6.3 8.2 (2.6-8.5) % Eos % (Auto) 1.6 1.7 (0-4.4) % Baso % (Auto) 0.8 0.8 (0.2-1.2) % Lymph # (Auto) 1.89 2.21 (0.9-3.2) K/mm3 [place] # (Auto) 0.6 0.6 (0.1-0.6) K/mm3 Eos # (Auto) 0.2 0.1 (0-0.3) K/mm3 Baso # (Auto) 0.1 0.1 (0.0-0.1) K/mm3 Abs Immat Gran (auto) 0.05 H 0.03 (0.00-0.031) K/mm3 Absolute Neuts (auto) 6.5 4.7 (1.3-6.7) K/mm3 Absolute Nucleated RBC 0.000 0.000 (0.0-0.012) K/mm3 Nucleated RBC % 0.0 0.0 (0.0-0.2) % PT 14.3 14.7 (11.1-14.7) Seconds INR 1.1 1.1 APTT 27.5 49.0 H (22.3-36.8) Seconds D-Dimer 2.76 H (<0.48) ug/mL Sodium 136 L (137-145) mmol/L Potassium 3.9 (3.4-5.0) mmol/L Chloride 100 (98-107) mmol/L Carbon Dioxide 29 (22-30) mmol/L Anion Gap 7 (4-12) mmol/L BUN 14 (9-20) mg/dL Creatinine 1.00 (0.7-1.3) mg/dL Estim Creat Clear Calc 88 ml/min Estimated GFR > 60 (59 - ) Glucose 115 H (65-110) mg/dL Calcium 9.5 (8.4-10.2) mg/dL Total Bilirubin 0.7 (0.2-1.3) mg/dL AST 29 (17-59) U/L ALT 38 (6-50) U/L Alkaline Phosphatase 91 (38-126) U/L Troponin I < 0.012 < 0.012 (0.000-0.034) ng/mL Total Protein 8.0 (6.3-8.2) g/dL Albumin 4.5 (3.5-5.1) g/dL Lipase 74 (23-300) U/L Influenza A (RT-PCR) Negative (Negative) Influenza B (RT-PCR) Negative (Negative) RSV (RT-PCR) Negative (Negative) SARS-CoV-2 RNA (RT-PCR) Negative (Negative) 05/09/24 05/09/24 05/09/24 Range/Units 11:34 16:23 21:47 WBC (4.5-10.0) K/mm3 RBC (4.6-6.20) M/mm3 Hgb (14.0-18.0) g/dL Hct (42.0-52.0) % MCV (80-100) fl MCH (26-34) pg MCHC (32-36) g/dl RDW (11.5-14.5) % Plt Count (150-375) k/mm3 MPV (7.4-10.4) fl Immature Gran % (Auto) (0-0.5) % Neut % (Auto) (45.5-73.1) % Lymph % (Auto) (18.3-44.2) % [place] % (Auto) (2.6-8.5) % Eos % (Auto) (0-4.4) % Baso % (Auto) (0.2-1.2) % Lymph # (Auto) (0.9-3.2) K/mm3 [place] # (Auto) (0.1-0.6) K/mm3 Eos # (Auto) (0-0.3) K/mm3 Baso # (Auto) (0.0-0.1) K/mm3 Abs Immat Gran (auto) (0.00-0.031) K/mm3 Absolute Neuts (auto) (1.3-6.7) K/mm3 Absolute Nucleated RBC (0.0-0.012) K/mm3 Nucleated RBC % (0.0-0.2) % PT (11.1-14.7) Seconds INR APTT 84.1 H 50.7 H 104.4 H (22.3-36.8) Seconds D-Dimer (<0.48) ug/mL Sodium (137-145) mmol/L Potassium (3.4-5.0) mmol/L Chloride (98-107) mmol/L Carbon Dioxide (22-30) mmol/L Anion Gap (4-12) mmol/L BUN (9-20) mg/dL Creatinine (0.7-1.3) mg/dL Estim Creat Clear Calc ml/min Estimated GFR (59 - ) Glucose (65-110) mg/dL Calcium (8.4-10.2) mg/dL Total Bilirubin (0.2-1.3) mg/dL AST (17-59) U/L ALT (6-50) U/L Alkaline Phosphatase (38-126) U/L Troponin I (0.000-0.034) ng/mL Total Protein (6.3-8.2) g/dL Albumin (3.5-5.1) g/dL Lipase (23-300) U/L Influenza A (RT-PCR) (Negative) Influenza B (RT-PCR) (Negative) RSV (RT-PCR) (Negative) SARS-CoV-2 RNA (RT-PCR) (Negative) 05/10/24 05/10/24 Range/Units 03:37 09:51 WBC (4.5-10.0) K/mm3 RBC (4.6-6.20) M/mm3 Hgb (14.0-18.0) g/dL Hct (42.0-52.0) % MCV (80-100) fl MCH (26-34) pg MCHC (32-36) g/dl RDW (11.5-14.5) % Plt Count (150-375) k/mm3 MPV (7.4-10.4) fl Immature Gran % (Auto) (0-0.5) % Neut % (Auto) (45.5-73.1) % Lymph % (Auto) (18.3-44.2) % [place] % (Auto) (2.6-8.5) % Eos % (Auto) (0-4.4) % Baso % (Auto) (0.2-1.2) % Lymph # (Auto) (0.9-3.2) K/mm3 [place] # (Auto) (0.1-0.6) K/mm3 Eos # (Auto) (0-0.3) K/mm3 Baso # (Auto) (0.0-0.1) K/mm3 Abs Immat Gran (auto) (0.00-0.031) K/mm3 Absolute Neuts (auto) (1.3-6.7) K/mm3 Absolute Nucleated RBC (0.0-0.012) K/mm3 Nucleated RBC % (0.0-0.2) % PT 14.4 (11.1-14.7) Seconds INR 1.1 APTT 94.3 H 78.9 H (22.3-36.8) Seconds D-Dimer (<0.48) ug/mL Sodium (137-145) mmol/L Potassium (3.4-5.0) mmol/L Chloride (98-107) mmol/L Carbon Dioxide (22-30) mmol/L Anion Gap (4-12) mmol/L BUN (9-20) mg/dL Creatinine (0.7-1.3) mg/dL Estim Creat Clear Calc ml/min Estimated GFR (59 - ) Glucose (65-110) mg/dL Calcium (8.4-10.2) mg/dL Total Bilirubin (0.2-1.3) mg/dL AST (17-59) U/L ALT (6-50) U/L Alkaline Phosphatase (38-126) U/L Troponin I (0.000-0.034) ng/mL Total Protein (6.3-8.2) g/dL Albumin (3.5-5.1) g/dL Lipase (23-300) U/L Influenza A (RT-PCR) (Negative) Influenza B (RT-PCR) (Negative) RSV (RT-PCR) (Negative) SARS-CoV-2 RNA (RT-PCR) (Negative) <Gerson Montague MD - Last Filed: 05/09/24 19:09> Imaging Data Radiologist's impression: CTA chest PE: Extensive bilateral pulmonary emboli. There is a saddle embolus across the bifurcation of the main pulmonary artery. Emboli are seen in the lobar segmental and subsegmental pulmonary arterial branches in the right lower lobe. Pulmonary emboli are seen in the lobar segmental pulmonary arterial branches of the left upper lobe and left lower lobe. Findings of right heart strain. Ill-defined irregular density in the lateral aspect of the left upper lobe. This may represent scarring or early developing pulmonary infarct. <Imani Dsouza PA-C - Last Filed: 05/10/24 17:33> CTA chest PE STAT RAD INTERPRETATION: Extensive bilateral pulmonary emboli. There is a saddle embolus across the bifurcation of the main pulmonary artery. Emboli are seen in the lobar segmental and subsegmental pulmonary arterial branches in the right lower lobe. Pulmonary emboli are seen in the lobar segmental pulmonary arterial branches of the left upper lobe and left lower lobe. Findings of right heart strain. Ill-defined irregular density in the lateral aspect of the left upper lobe. This may represent scarring or early developing pulmonary infarct. Impressions Abdomen/Pelvis CT 05/10/24 14:15 IMPRESSION: 1. No evidence of appendicitis, diverticulitis or intestinal obstruction. 2. Slightly dilated transverse colon measuring 6 cm. Follow-up advised. 3. Stents are seen in the iliac veins. 05/08/24 CXR: IMPRESSION: Small left pleural effusion versus chronic pleural blunting. 05/09 CTA PE ([facility] IN[facility]pretation) Impression: Extensive pulmonary embolus, including saddle embolus, as detailed above. Mild flattening of the interventricular septum could reflect mild right heart strain. Areas of groundglass consolidation in the left upper lobe/lingula, suspicious for developing pulmonary infarcts. 4 mm right lower lobe pulmonary nodule, likely benign. For a high-risk patient, consider one-year follow-up exam. ECHO 05/10/24 Summary 1. Technically difficult study with limited views. 2. Left ventricular chamber dimension is normal. 3. Left ventricular systolic function is normal, estimated at 65-70%. 4. There is mildly increased left ventricular wall thickness. 5. The left ventricular diastolic function is grade I diastolic dysfunction. 6. Right ventricular chamber dimension is normal. 7. Right ventricular systolic function is normal. 8. There is trivial anterior pericardial effusion. 9. No significant valvular disease appreciated. <Hazel Aiken MD - Last Filed: 05/10/24 20:00> ECG Data EKG #1: ECG completion date: 05/08/24 <Imani Dsouza PA-C - Last Filed: 05/10/24 17:33> EKG Interpretation: tachycardia, sinus rhythm, no ST changes and normal QT <Imani Dsouza PA-C - Last Filed: 05/10/24 17:33> Critical Care Time Critical Care Time Critical Care Time: Yes <Imani Dsouza PA-C - Last Filed: 05/10/24 17:33> Total Critical Care Time: 35 <Imani Dsouza PA-C - Last Filed: 05/10/24 17:33> Discharge Plan Discharge Clinical Impression: Pulmonary emboli Qualifiers: Pulmonary embolism type: saddle Chronicity: acute Acute cor pulmonale presence: with acute cor pulmonale Qualified Code(s): I26.02 - Saddle embolus of pulmonary artery with acute cor pulmonale <Imani Dsouza PA-C - Last Filed: 05/10/24 17:33> Patient Disposition: Acute Care Hospital <Imani Dsouza PA-C - Last Filed: 05/10/24 17:33> Condition: Serious <Imani Dsouza PA-C - Last Filed: 05/10/24 17:33> Patient Language: Polish <CINTHIA Chauhan Last Filed: 05/10/24 17:33> Prescriptions: No Action lisinopril-hydrochlorothiazide 10-12.5 mg tablet 1 tablet PO DAILY <Imani Dsouza PA-C - Last Filed: 05/10/24 17:33> Follow-up/Referrals: Vern,Phill Fuller MD [Non-Staff] - <Imani Dsouza PA-C - Last Filed: 05/10/24 17:33>
[2024-05-08 20:45] LABS: Basophils Absolute Auto 0.1 K/mm3 (0.0-0.1); Basophils Percent Auto 0.8 % (0.2-1.2); Eosinophils Absolute Auto 0.2 K/mm3 (0-0.3); Eosinophils Percent Auto 1.6 % (0-4.4); Hematocrit 44.1 % (42.0-52.0); Hemoglobin 15.1 g/dL (14.0-18.0); Immature Granulocyte Absolute 0.05 K/mm3 (0.00-0.031); Immature Granulocyte Percent A 0.5 % (0-0.5); Lymphocytes Absolute Auto 1.89 K/mm3 (0.9-3.2); Lymphocytes Percent Auto 20.4 % (18.3-44.2); Mean Corpuscular HGB Conc 34.2 g/dl (32-36); Mean Corpuscular Hemoglobin 29.8 pg (26-34); Mean Platelet Volume 8.9 fl (7.4-10.4); Monocytes Absolute Auto 0.6 K/mm3 (0.1-0.6); Monocytes Percent Auto 6.3 % (2.6-8.5); Neutrophils Absolute Auto 6.5 K/mm3 (1.3-6.7); Neutrophils Percent Auto 70.4 % (45.5-73.1); Platelet Count Result 223 k/mm3 (150-375); Red Blood Count 5.07 M/mm3 (4.6-6.20); White Blood Count 9.3 K/mm3 (4.5-10.0)
[2024-05-08 20:55] LABS: Alanine Aminotransferase 38 U/L (6-50); Albumin Level 4.5 g/dL (3.5-5.1); Alkaline Phosphatase 91 U/L (38-126); Anion Gap 7 mmol/L (4-12); Aspartate Amino Transferase 29 U/L (17-59); Bilirubin,Total 0.7 mg/dL (0.2-1.3); Blood Urea Nitrogen 14 mg/dL (9-20); Calcium 9.5 mg/dL (8.4-10.2); Carbon Dioxide 29 mmol/L (22-30); Chloride 100 mmol/L (98-107); Estimated CRCL calculation 88 ml/min; Estimated Glomerular Filt Rate > 60; Glucose 115 mg/dL (65-110); Lipase 74 U/L (23-300); Potassium 3.9 mmol/L (3.4-5.0); Sodium 136 mmol/L (137-145)
[2024-05-08 21:03] LABS: INR 1.1; Prothrombin Time 14.3 Seconds (11.1-14.7)
[2024-05-08 21:04] LABS: Partial Thromboplastin Time 27.5 Seconds (22.3-36.8)
[2024-05-08 21:07] LABS: Troponin I < 0.012 ng/mL (0.000-0.034)
[2024-05-08 21:20] LABS: D Dimer 2.76 ug/mL (<0.48)
[2024-05-08 21:21] LABS: Influenza A QL RT-PCR Negative (Negative); Influenza B QL RT-PCR Negative (Negative); RSV RNA, RT-PCR Negative (Negative); SARS-CoV-2 RNA PCR Negative (Negative)
[2024-05-08] MEDS: HEPARIN SOD/D5W 100 UNITS/ML 25,000 UNITS/250 ML BAG 15 UNITS IV CONT (23:46)
[2024-05-08] MEDS: HEPARIN SODIUM 5,000 UNITS/ML VIAL 7500 UNITS IV PUSH (23:46)
[2024-05-09] VITALS (51 sets, daily range): BP systolic 136–175; BP diastolic 80–109; PULSE 73–100; RESP 13–22; TEMP 36.6; O2SAT 93–100
--- NOTE | 2024-05-09 02:12 | PC.NURSE ---
0210 Shaye with [facility] transfer center calls to inform patient is accepted to [facility] and gets triage information. She states she will call back with a bed assignment when it is available.
--- NOTE | 2024-05-09 02:18 | ECG_ITS ---
Test Date: 2024-05-09 02:29:16 Measurements Intervals [place] Rate: 87 P: 41 AL: 179 QRS: 51 QRSD: 93 T: 45 QT: 322 QTc: 389 Interpretive Statements SINUS RHYTHM Compared to ECG 05/08/2024 18:37:11 Sinus tachycardia no longer present Electronically Signed On 05-09-2024 15:28:26 CDT by Jeremias Morgan M.D.
[2024-05-09 02:54] LABS: Troponin I < 0.012 ng/mL (0.000-0.034)
[2024-05-09 06:15] LABS: Basophils Absolute Auto 0.1 K/mm3 (0.0-0.1); Basophils Percent Auto 0.8 % (0.2-1.2); Eosinophils Absolute Auto 0.1 K/mm3 (0-0.3); Eosinophils Percent Auto 1.7 % (0-4.4); Hematocrit 42.1 % (42.0-52.0); Hemoglobin 14.3 g/dL (14.0-18.0); Immature Granulocyte Absolute 0.03 K/mm3 (0.00-0.031); Immature Granulocyte Percent A 0.4 % (0-0.5); Lymphocytes Absolute Auto 2.21 K/mm3 (0.9-3.2); Lymphocytes Percent Auto 28.4 % (18.3-44.2); Mean Corpuscular Hemoglobin 29.8 pg (26-34); Mean Corpuscular Volume 87.7 fl (80-100); Mean Platelet Volume 8.7 fl (7.4-10.4); Monocytes Absolute Auto 0.6 K/mm3 (0.1-0.6); Monocytes Percent Auto 8.2 % (2.6-8.5); Neutrophils Absolute Auto 4.7 K/mm3 (1.3-6.7); Neutrophils Percent Auto 60.5 % (45.5-73.1); Platelet Count Result 212 k/mm3 (150-375); Red Cell Distribution Width 13.1 % (11.5-14.5); White Blood Count 7.8 K/mm3 (4.5-10.0)
[2024-05-09 06:27] LABS: INR 1.1; Prothrombin Time 14.7 Seconds (11.1-14.7)
[2024-05-09] MEDS: HEPARIN SODIUM 5,000 UNITS/ML VIAL 7500 UNITS IV PUSH ×2 (06:50→18:06)
[2024-05-09 12:21] LABS: Partial Thromboplastin Time 84.1 Seconds (22.3-36.8)
--- NOTE | 2024-05-09 12:53 | PC.NURSE ---
PTT 84.1. no change in bolus or rate at this time
--- NOTE | 2024-05-09 13:05 | PC.NURSE ---
clear diet lunch tray ordered
--- NOTE | 2024-05-09 13:54 | PC.NURSE ---
Spoke with Tammy [facility] transfer Center, gave her updated vitals and states no bed available today
--- NOTE | 2024-05-09 14:04 | PC.NURSE ---
No Beds Mo Bap at [facility] remains of bed list
[2024-05-09] MEDS: HEPARIN SOD/D5W 100 UNITS/ML 25,000 UNITS/250 ML BAG 19 UNITS IV CONT (15:53)
[2024-05-09 16:38] LABS: Partial Thromboplastin Time 50.7 Seconds (22.3-36.8)
[2024-05-09 22:09] LABS: Partial Thromboplastin Time 104.4 Seconds (22.3-36.8)
--- NOTE | 2024-05-09 22:50 | PC.NURSE ---
most recent PTT is 104.4, no rate change or bolus required at this time
--- NOTE | 2024-05-09 22:52 | PC.NURSE ---
Marlyn at [facility] calls at [phone] for patient update. all questions answered.
[2024-05-10] VITALS (15 sets, daily range): BP systolic 133–156; BP diastolic 83–90; PULSE 64–86; RESP 14–23; TEMP 36.6; O2SAT 93–97
--- NOTE | 2024-05-10 | ECHO_ITS ---
Patient Info Name: Rosendo Cruz Age: 63 years : 1960 Gender: Male Ht: 71 in Wt: 257 lbs BSA: 2.46 m2 HR: 83 bpm BP: 151 / 88 mmHg Heart Rhythm: Sinus Rhythm, Tachycardia Technical Quality: Fair Exam Date: 05/10/2024 8:39 AM Exam Location: Echo Lab Patient Status: Emergency Admit Date: 05/08/2024 Staff Ordering Physician: Gerson Montague MD Hog Operator: Jyotsna Ryan RDCS Attending Provider: Imani Dsouza PA-C Referring Physician: Eddi ALEXANDER; Exam Type: CA echo dop color flow w con Study Info Indications - Saddle PE with possible heart strain Complete two-dimensional, color flow and Doppler transthoracic echocardiogram is performed. Summary 1. Technically difficult study with limited views. 2. Left ventricular chamber dimension is normal. 3. Left ventricular systolic function is normal, estimated at 65-70%. 4. There is mildly increased left ventricular wall thickness. 5. The left ventricular diastolic function is grade I diastolic dysfunction. 6. Right ventricular chamber dimension is normal. 7. Right ventricular systolic function is normal. 8. There is trivial anterior pericardial effusion. 9. No significant valvular disease appreciated. Left Ventricle Left ventricular chamber dimension is normal. Left ventricular systolic function is normal, estimated at 65-70%. There is mildly increased left ventricular wall thickness. The left ventricular diastolic function is grade I diastolic dysfunction. Right Ventricle Right ventricular chamber dimension is normal. Right ventricular systolic function is normal. Left Atria Left atrial chamber dimension is normal. Right Atria Right atrial chamber dimension is normal. Atrial Septum Intact interatrial septum visualized by color flow imaging. Aortic Valve The aortic valve is not well visualized. There is no aortic valve regurgitation. Pulmonic Valve The pulmonic valve is not well visualized. There is trace pulmonic regurgitation. Mitral Valve There is no mitral valve regurgitation. Tricuspid Valve There is trace tricuspid valve regurgitation. Pericardium/Pleural There is trivial anterior pericardial effusion. Inferior Vena Cava Inferior vena cava is not well visualized. Aorta The aortic root size at the sinus of Valsalva is normal. Left Ventricular Outflow Tract Name Value Normal LVOT 2D LVOT Diameter 2.05 cm LVOT Doppler LVOT Peak Gradient 4 mmHg LVOT Mean Gradient 2 mmHg LVOT VTI 17.81 cm LVOT VTI/AV VTI Ratio 0.89 LVOT Stroke Volume 58.67 ml LVOT CO 5.47 l/min LVOT CI 2.23 L/min/m2 Pulmonic Valve Name Value Normal RVOT Doppler RVOT Peak Gradient 2 mmHg PV Doppler PV Peak Gradient 3 mmHg Mitral Valve Name Value Normal MV Doppler MV Decel Anderson 396.10 cm/s2 MV PHT 0 s MV Area (PHT) 3.45 cm2 4.00-5.00 MV Diastolic Function MV E Peak Velocity 87.02 cm/s MV A Peak Velocity 108.41 cm/s MV E/A 0.80 MV Decel Time 0 s MV Annular TDI MV E/e' (Septal) 11.37 <=8.00 MV E/e' (Lateral) 8.96 <=8.00 MV E/e' (Average) 10.16 Aortic Valve Name Value Normal AV Doppler AV Peak Velocity 105.29 cm/s AV Peak Gradient 4 mmHg AV Mean Gradient 2 mmHg AV VTI 19.94 cm AV Area (Cont Eq VTI) 2.94 cm2 >=3.00 AV Area (Cont Eq Mir) 3.18 cm2 AV Regurgitation 2D LVOT Area 3.29 cm2 Ventricles Name Value Normal LV Dimensions 2D/MM IVS Diastolic Thickness (2D) 1.13 cm 0.60-1.00 LVID Diastole (2D) 4.94 cm 4.20-5.80 LVIW Diastolic Thickness (2D) 1.11 cm 0.60-1.00 LVID Systole (2D) 3.33 cm 2.50-4.00 LVOT Diameter 2.05 cm LV Mass (2D Cubed) 207.42 g 88.00-224.00 LV Mass Index (2D Cubed) 0.01 g/cm2 0.00-0.01 Relative Wall Thickness (2D) 0.45 LV Fractional Shortening/Ejection Fraction 2D/MM LV Fractional Shortening (2D) 33 % 25-43 LV EF (2D Teicholz) 61 % 52-72 LV Diastolic Volume (4C MOD) 159.47 ml LV EF (4C MOD) 70 % LV Diastolic Volume (2C MOD) 143.90 ml LV EF (2C MOD) 66 % LV Diastolic Volume (BP MOD) 157.49 ml 62.00-150.00 LV Diastolic Volume Index (BP MOD) 0.06 l/m2 0.03-0.07 LV Systolic Volume (BP MOD) 49.85 ml 21.00-61.00 LV Systolic Volume Index (BP MOD) 0.02 l/m2 0.01-0.03 LV EF (BP MOD) 68 % 52-72 LV Diastolic Length (4C) 9.12 cm LV Systolic Length (4C) 7.30 cm LV Stroke Volume (4C MOD) 111.09 ml Atria Name Value Normal LA Dimensions LA Volume (4C A-L) 62.81 ml LA Volume (BP A-L) 57.22 ml Report Signatures
[2024-05-10 04:09] LABS: Partial Thromboplastin Time 94.3 Seconds (22.3-36.8)
[2024-05-10] MEDS: PERFLUTREN LIPID MICROSPHERES 1.5 ML VIAL DILUTED TO 10 ML TOTAL VOLUME IV PUSH (09:30)
--- NOTE | 2024-05-10 09:50 | IVDEFINITY ---
Prior to administration of IV Definity the patient was educated on the risks and benefits of the imaging enhancing agent including potential adverse side effects. The patient verbalized understanding. Allergies were verified. No exclusion criteria were identified and at least one of the following inclusion criteria were met: 1) physician request, 2) patient technically difficult to image (per the [place] [employer]ocardi[employer] guidelines of two or more segments not discernable within the apical view), or 3) questionable left ventricular function. ?
[2024-05-10 10:17] LABS: INR 1.1; Prothrombin Time 14.4 Seconds (11.1-14.7)
--- NOTE | 2024-05-10 10:36 | PC.NURSE ---
RN called lab concerning order for PTT. Instructed it is needed for Heparin protocol
[2024-05-10 10:46] LABS: Partial Thromboplastin Time 78.9 Seconds (22.3-36.8)
--- NOTE | 2024-05-10 11:55 | PC.NURSE ---
[facility] transfer line Amy called for pt update. Informed ECHO results pending
--- NOTE | 2024-05-10 13:59 | PC.NURSE ---
Pt c/o sudden onset nausea, diaphoresis flushed with feeling like I could pass out Dr. Aiken informed. VSS. Additional IV inserted.
[2024-05-10] MEDS: SODIUM CHLORIDE 0.9% IV 1,000 ML 999 ML IV CONT (14:27)
[2024-05-10] MEDS: ONDANSETRON INJ 4 MG/2 ML VIAL IV PUSH ×2 (14:31→19:44)
--- NOTE | 2024-05-10 15:12 | PC.NURSE ---
Amy with [facility] transfer line called update given. Pt remains on list for [place] [facility]
[2024-05-10] MEDS: DICYCLOMINE HCL 10 MG CAPSULE 20 MG PO (17:27)
[2024-05-10] MEDS: SIMETHICONE 125 MG CHEW TAB PO (17:28)
--- NOTE | 2024-05-10 19:23 | PC.NURSE ---
[facility] transferred center called with bed #[id number] @ [facility]. [facility] arranged. Pt & family informed
== END 2024-05-10 20:06 | disposition short-term general hospital (02) ==
PROVIDERS: Emergency Medicine; Physician Assistant; Emergency Provider Student in an Organized Health Care Education/Training Program
DX: I26.02 Saddle embolus of pulmonary artery with acute cor pulmonale (principal); R10.9 Unspecified abdominal pain; Z20.822 Contact with and (suspected) exposure to COVID-19; I73.9 Peripheral vascular disease, unspecified; G47.33 Obstructive sleep apnea (adult) (pediatric); E66.9 Obesity, unspecified; Z68.35 Body mass index [BMI] 35.0-35.9, adult; Z95.820 Peripheral vascular angioplasty status with implants and grafts; R00.0 Tachycardia, unspecified; Z79.899 Other long term (current) drug therapy
CPT/HCPCS: 36415; 71046; 71275; 74177; 80053; 83690; 84484; 85025; 85380; 85610; 85730; 87637; 93005; 93306; 96361; 96374; 96375; 96376; 99291; A9270; C8929; J1644; J2405; J7030; Q9957; Q9967